=== PATIENT | male | born 1945 | race Caucasian/White ===

== ENCOUNTER 2018-02-13 07:40 | Outpatient (CLI) | payer MEDICARE, BC ==
--- NOTE | 2018-02-13 11:13 | MRI ---
MRI RIGHT SHOULDER WITHOUT CONTRAST: INDICATIONS: History of fall with right shoulder pain. FINDINGS: There is a partial-thickness tear involving the articular surface of the mid supraspinatus, extending into the anterior infraspinatus, measuring 1.2 x 1.8 cm. This involves approximately 50% of the ten don thickness. There is post surgical change of a prior rotator cuff repair and biceps tenodesis. T here is a type 2 SLAP tear with some degenerative fraying of the glenoid labrum. There is mild gleno humeral osteoarthrosis. There is an inferior projecting osteophyte off the distal clavicle, causing mild to moderate impingement of the subjacent supraspinatus musculotendinous junction. There is a ty pe II acromion. No muscular atrophy is evident. There is tendinosis of the subscapularis, supraspin atus, and infraspinatus. IMPRESSION: 1. High grade partial-thickness articular surface tear of the mid supraspinatus, extending into the anterior infraspinatus, with moderate supraspinatus and infraspinatus tendinosis. 2. Post surgical changes of prior rotator cuff repair and lysis tenodesis. 3. Mild glenohumeral and moderate acromioclavicular joint osteoarthrosis. Inferior projecting osteo phyte off the distal clavicle causes mild to moderate encroachment on the subjacent supraspinatus. 5. Degenerative fraying of the glenoid labrum with type II superior labrum anterior and posterior te ar. POS: [facility]
== END 2018-02-13 07:41 | disposition home or self-care (01) ==
LOC: TBSIIMAG 07:40
PROVIDERS: ATTEND Orthopaedic Surgery
DX: M75.101 Unspecified rotator cuff tear or rupture of right shoulder, not specified as traumatic (principal); S43.401A Unspecified sprain of right shoulder joint, initial encounter; M19.011 Primary osteoarthritis, right shoulder; M25.811 Other specified joint disorders, right shoulder; M25.511 Pain in right shoulder

== ENCOUNTER 2018-02-19 15:10 | Outpatient (CLI) | payer MEDICARE, BC ==
[2018-02-19 16:11] LABS: #Basophils 0.1 thou/uL (0.0-0.2); #Eosinphils 0.2 thou/uL (0.0-0.7); #Lymphocytes 3.1 thou/uL (1.20-3.40); #Monocytes 1.2 thou/uL (0.11-0.59); #Neutrophils 5.6 thou/uL (1.40-6.50); %Basophils 1.2 % (0.0-1.0); %Eosinophils 2.1 % (0.0-10.0); %Lymphocytes 30.3 % (21.0-51.0); %Monocytes 11.8 % (0.0-10.0); %Neutrophils 54.6 % (42.0-75.0); Mean Corpuscular HGB CONC 32.8 g/dL (32.0-36.0); Mean Corpuscular Hemoglobin 30.3 pg (27.0-31.0); Mean Corpuscular Volume 92.3 fl (80.0-94.0); Mean Platelet Volume 6.6 fL (7.4-10.4); Platelet Count 368 thou/uL (130-400); RBC Distribution Width 12.9 % (11.5-14.5); Red Blood Cell (RBC) Count 4.61 mill/uL (4.70-6.10); White Blood Cell (WBC) Count 10.2 thou/uL (4.8-10.8)
[2018-02-19 16:30] LABS: Anion Gap 11 mmol/L (10-20); BUN (Urea Nitrogen) 20 mg/dL (8.4-25.7); Calc. Creatinine Clearance 0 mL/min (70-130); Calcium 9.2 mg/dL (7.8-10.44); Carbon Dioxide 26 mmol/L (23-31); Chloride 105 mmol/L (98-107); Estimated GFR-MDRD 41; Glucose 170 mg/dL (83-110); Potassium 4.8 mmol/L (3.5-5.1); Sodium 137 mmol/L (136-145)
== END 2018-02-19 15:11 | disposition home or self-care (01) ==
LOC: LABBT 15:10
PROVIDERS: ATTEND Orthopaedic Surgery
DX: Z01.818 Encounter for other preprocedural examination (principal); M75.101 Unspecified rotator cuff tear or rupture of right shoulder, not specified as traumatic
CPT/HCPCS: 80048; 85025; 93005; 93010

== ENCOUNTER 2018-03-01 06:53 | Day surgery (SDC) | payer MEDICARE, BC ==
[2018-02-19 15:24] VITALS: BMI 29.2
[2018-03-01] MEDS ORDERED: Midazolam HCl 2 mg/2 ml Vial ONE ×2 (07:39→09:30)
[2018-03-01] MEDS ORDERED: Fentanyl 100 MCG/2 ML VIAL ONE (07:39)
[2018-03-01] MEDS ORDERED: CEFAZOLIN/Water 2 GM/20 ML SYRINGE ONE (07:41)
[2018-03-01] MEDS ORDERED: Bupivacaine/Epinephrine 0.25% 30 ML VIAL ONE (09:51)
[2018-03-01] MEDS ORDERED: HYDROmorphone 0.5 MG/0.5 ML SYRINGE ONE (10:09)
[2018-03-01] MEDS ORDERED: Propofol 500 MG/50 ML VIAL ONE (10:09)
--- NOTE | 2018-03-01 13:34 | OP ---
PREOPERATIVE DIAGNOSIS: Rotator cuff tear, right shoulder. POSTOPERATIVE DIAGNOSIS: Rotator cuff tear, right shoulder. PROCEDURE PERFORMED: Arthroscopic rotator cuff repair. SURGEON: Mazin Knox M.D. ANESTHESIA: General. BLOOD LOSS: Minimal. SPECIMEN: None. DRAINS: None. COMPLICATIONS: None. DESCRIPTION OF PROCEDURE: The patient was taken to the operating where general anesthesia was induce d. He was placed in left lateral decubitus position. Right arm was placed in traction and prepped a nd draped in the usual sterile fashion. Scope was placed in the glenohumeral joint. There was no si gnificant arthritis in the joint. Scope was placed in subacromial bursa and performed an acromioplas ty and arthroscopic decompression of subacromial space. I found the old sutures where I had repaired his rotator cuff about 10 years ago, found a new rotator cuff tear laterally. I freshened up the gr eater tuberosity and placed a TwinFix suture anchor through the greater tuberosity. Sutures passed t hrough the rotator cuff and tied with a good watertight repair and then reinforced with a double row using a TwinFix device. I did inspect the AC joint, which was arthritic. There was no significant i nferior spur, so I did not do any type of distal clavicle resection. Shoulder was drained. Portals closed with nylon suture. Sterile dressings applied.
[2018-03-01] MEDS ORDERED: Glycopyrrolate 0.2 MG/ML 5 ML SYRINGE ONE (15:04)
[2018-03-01] MEDS ORDERED: Ondansetron HCl/PF 4 MG/2 ML Vial ONE (15:04)
[2018-03-01] MEDS ORDERED: PROPOFOL 200 MG/20 ML VIAL ONE ×2 (15:04→15:05)
[2018-03-01] MEDS ORDERED: Lidocaine 1% PF 5 ML VIAL ONE (15:04)
== END 2018-03-01 13:50 | disposition home or self-care (01) ==
LOC: SDC 06:53
PROVIDERS: ATTEND Orthopaedic Surgery
PROC: 0LQ14ZZ Repair Right Shoulder Tendon, Percutaneous Endoscopic Approach (ICD-10-PCS; principal; 2018-03-01)
PROC: 0RNJ4ZZ Release Right Shoulder Joint, Percutaneous Endoscopic Approach (ICD-10-PCS; 2018-03-01)
DX: M75.101 Unspecified rotator cuff tear or rupture of right shoulder, not specified as traumatic (principal); I10 Essential (primary) hypertension; E11.40 Type 2 diabetes mellitus with diabetic neuropathy, unspecified; Z79.82 Long term (current) use of aspirin; Z79.84 Long term (current) use of oral hypoglycemic drugs; Z79.899 Other long term (current) drug therapy; Z98.890 Other specified postprocedural states
CPT/HCPCS: 29826; 29827; 97139; G8984; G8985; G8986; C1713; J1170; J2001; J2250; J2405; J2704; J3010

== ENCOUNTER 2018-07-05 07:32 | Outpatient (CLI) | payer MEDICARE, BC ==
--- NOTE | 2018-07-05 09:42 | MRI ---
MRI THORACIC SPINE NONCONTRAST: DATE: 07/05/2018. HISTORY: A 72-year-old male with M54.14 thoracic radiculopathy. FINDINGS: The thoracic vertebral body heights are maintained. There is disk space narrowing at all levels, mil d, moderate, and severe. There are mixed Modic type I, type II, and type III end plate marrow change s at various levels, especially in the mid thoracic spine levels. There are disk-osteophytic bar com plexes encroaching upon the anterior aspect of the spinal canal at all levels of the thoracic spine f rom T1-2 through T12-L1. Most are mild. There is thickening and calcification of ligamentum flavum at most levels, encroaching upon the posterior aspect of the spinal canal. There are mild and modera te-severe degenerative facet changes bilaterally. All of these factors result in varying degrees of central spinal canal stenosis and neural foraminal stenosis. T1-2: Moderate central stenosis. Moderate to severe bilateral neural foraminal stenosis. Slight gr vickey I anterolisthesis of T1 on T2 due to moderate to severe bilateral degenerative facet disease. T2-3: Grade I anterolisthesis of T2 on T3 due to bilateral moderate degenerative facet disease. Mil d to moderate bilateral neural foraminal stenosis. Mild central stenosis. T3-4: Moderate central spinal canal stenosis. Moderate to severe right neural foraminal stenosis. Mild to moderate left neural foraminal stenosis. T4-5: mild to moderate central spinal canal stenosis. Moderate right neural foraminal stenosis. Mo derate to severe left neural foraminal stenosis. Right paracentral component of the disk protrusion abuts the ventral surface of the spinal cord. T5-6: Moderate central stenosis. Moderate to severe neural foraminal stenosis. T6-7: Mild central stenosis. Moderate bilateral neural foraminal stenosis. T7-8: Mild central stenosis. Moderate right neural foraminal stenosis. Mild left neural foraminal stenosis. T8-9: Mild central stenosis. Moderate bilateral neural foraminal stenosis. T9-10: Left paracentral small focal disk herniation indents the left ventral surface of the spinal c ord. Overall moderate central spinal canal stenosis. Moderate bilateral neural foraminal stenosis. T10-11: Moderate central spinal canal stenosis. Moderate right neural foraminal stenosis. Moderate to severe left neural foraminal stenosis. T11-12: Moderate central stenosis. Moderate bilateral neural foraminal stenosis. T12-L1. No central stenosis and no neural foraminal stenosis. IMPRESSION: 1. Thoracic spondylosis, with multilevel moderate and moderate to severe degenerative disk disease, and facet osteoarthrosis. 2. Multilevel central spinal canal stenosis and neural foraminal stenosis, of varying degrees. 3. For example, at T9-10, there is a tiny central disk protrusion that indents the left ventral surf joyce of the spinal cord. POS: [facility]
== END 2018-07-05 07:33 | disposition home or self-care (01) ==
LOC: TBSIIMAG 07:32
PROVIDERS: ATTEND Anesthesiology Pain Medicine
DX: M47.24 Other spondylosis with radiculopathy, thoracic region (principal); M51.14 Intervertebral disc disorders with radiculopathy, thoracic region; M48.04 Spinal stenosis, thoracic region; M99.82 Other biomechanical lesions of thoracic region
CPT/HCPCS: 72146

== ENCOUNTER 2018-12-16 10:59 | Emergency (ER) | payer MEDICARE, BC ==
[2018-12-16] MEDS ORDERED: HYDROcodone/Acetaminophen 5/325 mg Tablet ONE (12:46)
== END 2018-12-16 12:59 | disposition home or self-care (01) ==
LOC: ERS 10:59
DX: M79.662 Pain in left lower leg (principal); I10 Essential (primary) hypertension; E11.9 Type 2 diabetes mellitus without complications; Z79.82 Long term (current) use of aspirin; Z79.84 Long term (current) use of oral hypoglycemic drugs; Z79.899 Other long term (current) drug therapy; W01.0XXA Fall on same level from slipping, tripping and stumbling without subsequent striking against object, initial encounter
CPT/HCPCS: 99283

== ENCOUNTER 2019-09-02 14:59 | Emergency (ER) | payer MEDICARE, BC ==
--- NOTE | 2019-09-02 16:30 | RAD ---
Right knee 4 views HISTORY: Right knee injury. FINDINGS: Joint spaces are preserved. Mild tricompartmental osteophytosis. Mild chondrocalcinosis of the menisci. Small amount of fluid distends the suprapatellar bursa. No acute fracture, dislocation, or aggressive osseous erosions. Prominent calcification over the arterial structures. IMPRESSION: No acute osseous abnormalities are demonstrated. Small amount of joint fluid could reflect the otherwise mild osteoarthritic changes or internal deran gement. Atherosclerosis.
[2019-09-02] MEDS ORDERED: Ketorolac Tromethamine 30 MG/ML VIAL ONE (17:13)
== END 2019-09-02 17:39 | disposition home or self-care (01) ==
LOC: ERS 14:59
DX: M25.561 Pain in right knee (principal); I10 Essential (primary) hypertension; E11.9 Type 2 diabetes mellitus without complications; Z79.84 Long term (current) use of oral hypoglycemic drugs; Z79.899 Other long term (current) drug therapy; X50.9XXA Other and unspecified overexertion or strenuous movements or postures, initial encounter
CPT/HCPCS: 96372; J1885

== ENCOUNTER 2020-04-17 08:18 | Outpatient (CLI) | payer MEDICARE, BC ==
--- NOTE | 2020-04-17 10:37 | MRI ---
MRI LUMBAR SPINE WITH AND WITHOUT CONTRAST: DATE: 04/17/2020 HISTORY: 74-year-old male with low back pain and lumbar radiculopathy COMPARISON: 11/24/2014 TECHNIQUE: Multiple sequences obtained in axial and sagittal planes, pre and post IV injection of gadolinium-bas ed contrast agent. FINDINGS: 5 lumbar-type vertebrae. Vertebral body heights are maintained. No major bone marrow signal abnormali ty. No spondylolisthesis. Conus medullaris terminates at L1-2. Imaged only on sagittal sequences, bilateral neural foraminal stenosis is noted at T11-12 T12-L1:No central or neural foraminal stenosis. L1-2:No central or neural foraminal stenosis. L2-3:Moderate disc space narrowing, worse. Disc bulge is larger than before, indenting ventral aspect of thecal sac. Minimal central spinal canal stenosis. Posterior epidural fat pad. Mild thecal sac stenosis. Mild right neural foraminal stenosis. Mild left and moderate left neural foraminal stenosis , worse than before. L3-4:Moderate disc space narrowing, slightly worse than before. Diffuse disc bulge indents thecal sac . Mild central spinal canal stenosis. Posterior epidural fat pad. Mild-moderate thecal sac stenosis, worse than before. Mild to moderate right neural foraminal stenosis. Moderate left neural f oraminal stenosis, worse than before. Moderate bilateral facet DJD L4-5:Moderate to severe disc space narrowing. Interbody cage postsurgical changes as before. Tracks f rom previously removed bilateral pedicle screws at L4 and L5 again noted. Severe bilateral facet DJD, similar to previous. No central spinal canal stenosis. Moderate bilateral neural foraminal steno sis, left worse than right, without major change. L5-S1:Interbody cage changes at moderately narrowed disc space, unchanged. High-grade bilateral facet DJD. No central stenosis. Mild right and mild to moderate left neural foraminal stenosis. Tract from previously removed right S1 pedicle screw. Existing left S1 pedicle screw. Because of the magnet ic susceptibility artifact caused by the hardware, it is somewhat difficult to evaluate for abnormal enhancement. No definite abnormal enhancement is identified in the left neural foramen. Lennox tional left SI joint fusion hardware. No major interval change. IMPRESSION: 1) lumbar spondylosis with multilevel degenerative disc disease and facet osteoarthrosis. 2) mild intervertebral worsening of degenerative disc disease at L2-3 and L3-4 3) left S1 pedicle screw and left SI joint fusion hardware remain. 4) signs of previously removed bilateral pedicle screws at L4 and L5, and previously removed right pe dicle screw at S1. 5) no severe central spinal canal stenosis at any level. 6) high-grade bilateral facet osteoarthrosis at the lowest 2 levels, including severe at L4-5. 7) old lumbar interbody fusion changes at L4-5 and L5-S1
[2020-04-17] MEDS ORDERED: Magnevist 469MG/ML 20 ML VIAL ONE (12:40)
== END 2020-04-17 08:19 | disposition home or self-care (01) ==
LOC: BICMRI 08:18
PROVIDERS: ATTEND Anesthesiology Pain Medicine
DX: M47.26 Other spondylosis with radiculopathy, lumbar region (principal); M51.16 Intervertebral disc disorders with radiculopathy, lumbar region; Z98.1 Arthrodesis status
CPT/HCPCS: 72158; 82565; A9579

== ENCOUNTER 2021-09-27 12:18 | Outpatient (CLI) | payer MEDICARE, OTHER | END 2021-09-27 12:19 | disposition home or self-care (01) | LOC: RAD 12:18 | PROVIDERS: ATTEND Orthopaedic Surgery | DX: M47.26 Other spondylosis with radiculopathy, lumbar region (principal); M54.50 Low back pain, unspecified; Z98.890 Other specified postprocedural states | CPT/HCPCS: 72100 ==